=== PATIENT | female | born 1950 | race African-American/Black ===

== ENCOUNTER → 2018-02-01 | Outpatient (CLI) | payer MEDICARE, MEDICAID ==
[~2018-02-01] MED LIST: ASPI-1159 PO; BENA40TA66 PO; HYDR12.529 PO; IOHEXOL-300 100 ML BOTTLE ONE; METF500T6 PO
== END | disposition home or self-care (01) ==
LOC: CT 09:18
PROVIDERS: ATTEND Internal Medicine
DX: N28.1 Cyst of kidney, acquired (principal); K57.30 Diverticulosis of large intestine without perforation or abscess without bleeding; I10 Essential (primary) hypertension
CPT/HCPCS: 74178; Q9967

== ENCOUNTER 2018-05-06 10:28 | Emergency (ER) | payer MEDICARE, MEDICAID ==
[~2018-05-06] VITALS: Ht 165.1 cm; Wt 81.0 kg
[~2018-05-06 10:28] MED LIST changes: -IOHEXOL-300 100 ML BOTTLE ONE; +METF-414 PO; -METF500T6 PO
[2018-05-06 10:39] VITALS: BP 145/82
[2018-05-06] MEDS ORDERED: ACETAMINOPHEN 325MG TABLET PO ONE (11:15)
== END 2018-05-06 13:48 | disposition home or self-care (01) ==
LOC: ER 12:19
DX: S70.02XA Contusion of left hip, initial encounter (principal); S70.01XA Contusion of right hip, initial encounter; E11.9 Type 2 diabetes mellitus without complications; I10 Essential (primary) hypertension; Z79.899 Other long term (current) drug therapy; H40.9 Unspecified glaucoma; W01.0XXA Fall on same level from slipping, tripping and stumbling without subsequent striking against object, initial encounter; Y93.89 Activity, other specified; Y92.89 Other specified places as the place of occurrence of the external cause; Y99.8 Other external cause status
CPT/HCPCS: 73521; 99283